=== PATIENT | female | born 1970 | race Caucasian/White ===

== ENCOUNTER 2024-12-26 12:33 | Emergency (ER) | payer BC ==
[~2024-12-26] VITALS: Ht 185.4 cm; Wt 122.7 kg
--- NOTE | 2024-12-26 15:07 | Physician Documentation ---
History of Present Illness ~ Chief Complaint: Neck pain Stated Complaint: GENERAL ILLNESS Time Seen by MD: 14:27 Mode of Arrival: POV, EMS HPI Patient is a 54-year-old female that reports to the emergency department for evaluation of neck pain sustained approximately 2 weeks ago. Patient reports that she was in bed rolled over to pet her CAT at that time felt a popping sensation to her neck since that time she has had progressive pain with numbness and tingling radiating down her left arm. Patient denies any traumatic injury any previous injury to her neck. She reports that she has tried ice heat massage hot tub Tylenol and ibuprofen without improvement. Medication Reconciliation Allergies: Coded Allergies: No Known Allergies (Unverified , 12/26/24) Past Medical History Last Menstrual Period: Dec 08, 2024 Review of Systems ROS As stated above in the HPI, otherwise all systems are reviewed and negative. Physical Exam Vital Signs: Temperature: 97.8, Source: Oral, Heart Rate: 90, Respiratory Rate: 16, BP: 119/85, Pulse Oximetry: 97, Weight: 122.730 Physical Exam VITALS: Reviewed and as above. GENERAL: Alert, no apparent distress. HEENT: Normocephalic, atraumatic, PERRL, EOMI, dry mucosa, no erythema RESPIRATORY: Lungs clear, normal breath sounds, no respiratory distress. CHEST: No accessory muscle use, no retractions CV: Regular rate, rhythm, no edema, no murmur, No: JVD GI: Soft, non-tender, bowels sounds present, no rebound, guarding, or rigidity BACK: No CVA tenderness, or swelling MUSCULOSKELETAL No deformities, no edema, patient with examination to the cerv ical spine, pain with range of motion to the cervical spine radiates into the left shoulder. SKIN: No edema, no rash NEURO: Oriented x4, No motor or sensory deficit PSYCH: Normal mood and affect, no agitation Progress Results/Orders Results/Orders Orders - FERN ARMSTRONGP Ct Cervical Spine (12/26/24 14:52) Cyclobenzaprine Tablet (Flexeril Tablet) (12/26/24 16:20) Completed Orders - FERN ARMSTRONG MATERIAL SPECIALIST Ketorolac Trometh 15mg/Ml Vial (Toradol (12/26/24 14:55) Methylprednisolone Sod Succ (Solumedrol (12/26/24 14:55) Acetaminophen 325mg Tablet (Tylenol Tabl (12/26/24 14:55) Ct Cervical Spine (12/26/24 14:52) Ketorolac Trometh 30mg/Ml Vial (Toradol (12/26/24 15:00) Medications Received in ER Medications (Trade) Dose Ordered Sig/Marisa Route PRN Reason Start Time Stop Time Status Last Admin Dose Admin (SoluMEDROL 125mg inj) 125 mg ONCE ONCE IM 12/26/24 14:55 12/26/24 14:57 DC 12/26/24 15:12 125 MG (Tylenol tablet) 975 mg ONCE ONCE PO 12/26/24 14:55 12/26/24 14:57 DC 12/26/24 15:11 975 MG (Toradol inj. 30mg/ml) 30 mg ONCE ONCE IM 12/26/24 15:00 12/26/24 15:01 DC 12/26/24 15:12 30 MG Vital Signs 12/26/24 12/26/24 12/26/24 12:54 14:32 15:12 Temp 97.8 Pulse 90 Resp 19 16 16 B/P (MAP) 119/85 Pulse Ox 97 Medical Decision Making Findings Patient presents with cervical neck pain. Given history, exam and workup patient likely has cervical radiculopathy. I have low suspicion for fracture, dislocation, significant ligamentous injury, septic arthritis, gout flare, new autoimmune arthropathy, or any other concerning diagnosis at this time. Patient given Toradol injection steroid injection Tylenol and Flexeril with good improvement in range of motion and discomfort. Patient will be discharged with prescription for muscle relaxer. Patient will follow up with primary care provider. Patient will return to the emergency room with any worsening or recurrent symptoms or any additional concerning symptoms that we discussed here today. Differential Dx:Considerations: Include: Cervical muscle spasm, Discitis, DJD, Meningitis, Thyroiditis, Torticollis, Vertebral artery dissect., Other Departure Disposition: HOME / SELF CARE / HOMELESS Impression: Primary Impression: Neck pain Additional Impressions: Strain of neck muscle Cervical radiculopathy Discharge Instructions: Cervical Radiculopathy, [id number], Cervical Sprain Additional Instructions: Patient presents with cervical neck pain. Given history, exam and workup patient likely has cervical radiculopathy. I have low suspicion for fracture, dislocation, significant ligamentous injury, septic arthritis, gout flare, new autoimmune arthropathy, or any other concerning diagnosis at this time. Patient given Toradol injection steroid injection Tylenol and Flexeril with good improvement in range of motion and discomfort. Patient will be discharged with prescription for muscle relaxer. Patient will follow up with primary care provider. Patient will return to the emergency room with any worsening or recurrent symptoms or any additional concerning symptoms that we discussed here today. Please take your prescriptions as directed. Please follow up with her primary care provider. Return to the emergency room if you have any worsening or recurrent symptoms or any additional concerning symptoms that we discussed here today i.e. increased pain decreased range of motion headache nausea vomiting numbness in your extremities or increase in numbness and tingling in the bilateral upper or lower extremities. Please follow up with physical therapy as I feel you would benefit greatly from their services at this time. Referrals: NO PRIMARY CARE PROVIDER (PCP) Prescriptions Cyclobenzaprine* (Cyclobenzaprine*) 10 Mg Tablet 1 TAB PO TID for 7 Days, #21 TAB Prov: FERN ARMSTRONG 12/26/24 Education Educated: Patient Educated regarding: diagnosis, treatment, need for follow up Signature Scribe Signature: A Attestation: Scribed for Fern Armstrong by LUCIUS Ortiz . 12/26/24 16:25 FERN ARMSTRONG Dec 26, 2024 15:07
[2024-12-26] MEDS: ketorolac trometh 30MG/ML vial 30 MG/ML VIAL IM ONE (15:12)
[2024-12-26] MEDS: ketorolac trometh 15mg/ml vial 15 MG/ML ML IM ONE (15:13)
--- NOTE | 2024-12-26 15:53 | RADIOLOGY REPORT ---
EXAM: CT CT CERVICAL SPINE INDICATION: Pain with popping sensation TECHNIQUE: Non contrast axial images of the cervical spine have been obtained with coronal and sagitt al reformatted images. CT scans at this facility use dose modulation, iterative reconstruction, and/o r weight based dosing when appropriate to reduce radiation dose to as low as reasonably achievable. COMPARISON: None FINDINGS: ANATOMY: Cervical lordosis is maintained. VERTEBRAL BODIES: The vertebral bodies are normal in height and alignment. The dens is intact, the la teral masses of C1 are normally aligned, and the atlantodental interval is normal for age. SPINAL CANAL: No significant spinal canal stenosis. INTERVERTEBRAL DISCS: No CT findings to suggest traumatic disc herniation or acute hematoma. Interver tebral minimal disc height loss at C5-6 and C6-7 with marginal vertebral body osteophytosis SOFT TISSUES: There is no prevertebral soft tissue swelling. OTHER: The partially visualized lung apices are clear. IMPRESSION: 1. No acute cervical spine fracture or malalignment.
[2024-12-26] MEDS ORDERED: CYCL-1 PO (16:25)
[2024-12-26 17:19] VITALS: BP 123/84; PULSE 74; RESP 16; TEMP 98; O2SAT 97
== END 2024-12-26 17:22 | disposition home or self-care (01) ==
LOC: ER 12:34
DX: S16.1XXA Strain of muscle, fascia and tendon at neck level, initial encounter (principal); M54.12 Radiculopathy, cervical region; X58.XXXA Exposure to other specified factors, initial encounter; Y93.89 Activity, other specified; Y92.89 Other specified places as the place of occurrence of the external cause; Y99.8 Other external cause status
CPT/HCPCS: 72125; 96372; 99285; J1885; J2919